=== PATIENT | male | born 2000 | race Caucasian/White ===

== ENCOUNTER 2021-05-07 06:35 | Emergency (ER) | payer MEDICAID, SELFPAY ==
[2021-05-07 07:03] VITALS: BP 131/68; PULSE 98; RESP 18; TEMP 36.6; O2SAT 97; BMI 36.7
[2021-05-07 07:05] VITALS: BP 134/66; PULSE 94; RESP 16; TEMP 36.9; O2SAT 98; BMI 36.7
--- NOTE | 2021-05-07 07:20 | ED.EAR ---
HPI - Ear Problem General Chief complaint: Ear Problems Stated complaint: ear pain for a few days, blockage Time Seen by Provider: 05/07/21 07:19 Source: patient and family ( mother) Mode of arrival: ambulatory Limitations: no limitations History of Present Illness HPI Narrative: 20-year-old male came in for evaluation of right ear pain. Pain started since yesterday, pain is constant described as dull aching pain severe 10/10, pain is more if he moves his head or touching his external ear, no other associated symptoms no fever or chills or hearing loss. patient declined recent swimming. Related Data Previous Rx's Medication Instructions Recorded amoxicillin 500 mg PO BID #14 cap 05/07/21 amoxicillin 500 mg PO BID #14 tab 05/07/21 ciprofloxacin HCl 5 drp OTIC (EAR) LEFT BID 7 Days 05/07/21 ea ciprofloxacin-hydrocortisone 3 drp OTIC (EAR) LEFT BID 7 Days 05/07/21 [Cipro HC] ml Allergies Allergy/AdvReac Type Severity Reaction Status Date / Time No Known Allergies Allergy Verified 05/07/21 07:05 [No Known Allergies*] Review of Systems Review of Systems: All other systems are reviewed and are negative Constitutional: Reports as per HPI and Reports no additional constitutional complaints Eyes: Reports as per HPI and Reports no additional eye complaints Reports system reviewed and no additional complaints, except as documented Cardiovascular: Reports as per HPI and Reports no additional cardiovascular complaints Respiratory: Reports as per HPI and Reports no additional respiratory complaints Gastrointestinal: Reports as per HPI and Reports no additional gastrointestinal complaints Genitourinary: Reports no additional female genitourinary complaints Musculoskeletal: Reports no additional musculoskeletal complaints Skin/Breast: Reports system reviewed and no additional complaints, except as docu Psychiatric: Reports no additional psychiatric complaints Endocrine: Reports no additional endocrine complaints Hematologic/Lymphatic: Reports no additional hematologic/lymphatic complaints Allergic/Immunologic: Reports no additional allergic/immunologic complaints Reports system reviewed and no additional complaints, except as documented and Reports Abnormal speech present [facility] Social History Social History Advance Directives: Yes Advance Directives Information Provided: Yes Advance Directives on File: No Physical Exam Vital Signs: Vital Signs: Last Vital Signs Temp 98.5 F 05/07/21 07:05 Pulse 94 05/07/21 07:05 Resp 16 05/07/21 07:05 BP 134/66 05/07/21 07:05 Pulse Ox 98 05/07/21 07:05 Body Mass Index 36.7 vital signs have been reviewed as appeared to be correct. Blood pressure normal. Heart rate normal. Respiration rate normal. Temperature normal. Oxygen saturation normal. Appearance: Alert. Oriented X3. No acute distress. Head: Normal external exam. Normocephalic. Atraumatic. No Gomez signs noted. No raccoon eyes noted Eyes: PERRLA. EOMI. Conjunctiva and sclera normal. Eyelids normal. ENT: tenderness with immobilize the external ear, small white discharge in external ear canal , TM is erythematous Neck: Normal inspection. Neck supple. FROM. No adenopathy. Thyroid Normal. No meningeal signs. No neck mass noted. CVS: Normal heart rate and rhythm. Heart sound normal. No murmurs noted. Pulses normal throughout. Respiratory: No respiratory distress. Painless inspiration. Breath sounds normal. No wheezes/rales/rhonchi noted. Chest nontender. No accessory muscle usage noted or decreased air movement noted. Abdomen: Soft and nontender. Bowel sounds normal in all 4 quadrants. No distention noted. No organomegaly noted. No visible injury noted. Back: No CVA tenderness. Full range of motion noted. Skin: Skin warm and dry. Normal skin color. Normal skin turgor. No rashes/lesions/lacerations noted. Extremities: No lower extremity edema. Extremities exhibit normal range of motion. Extremities nontender. Neuro: Oriented X 3. No motor deficit. No sensory deficit. Reflexes normal. Course Course Course Narrative: A 20-year-old male came in with right ear pain physical exam is consistent with mix of otitis media and otitis externa. Started patient on fluoroquinolones ear drums, and systemic amoxicillin. Discharge Plan Discharge Clinical Impression: Otitis externa, Otitis media Patient Disposition: Home, Self-Care Instructions: Otitis Externa (ED) Prescriptions: New Cipro HC 0.2-1 % drops,suspension 3 drp otic (ear) left BID 7 Days RF: 0 amoxicillin 500 mg capsule 500 mg PO BID Qty: 14 RF: 0 ciprofloxacin HCl 0.2 % dropperette 5 drp otic (ear) left BID 7 Days RF: 0 amoxicillin 500 mg tablet 500 mg PO BID Qty: 14 RF: 0 Referrals: Physician,Unknown [Primary Care Provider] - 2 days
== END 2021-05-07 07:44 | disposition home or self-care (01) ==
PROVIDERS: Emergency Provider Emergency Medicine
DX: H66.91 Otitis media, unspecified, right ear (principal); H60.91 Unspecified otitis externa, right ear
CPT/HCPCS: 99283; 99284

== ENCOUNTER 2025-03-07 15:11 | Outpatient (REF) | payer MEDICAID, SELFPAY ==
--- OUTSIDE RECORDS SUMMARY | 2025-03-07 15:43 | XMS_ITS | Encounter Summary ---
Author Organization [employer] Address [address] [facility] 7t [place] [address] Care Team Providers Care Match Maker Name Role Phone Lisa Mata Primary Care Provider Reason for Visit * Reason Comments Med Refill Encounter Details Date Type Department Care Team ([facility] st Contact Info) Description 03/12/2024 Refill [facility] CHC MED & PEDS [address] [place], [place] [phone] Lisa Mata ANP [address] [place] [address] Insomnia, unspecified type Social History Tobacco Use Types Packs/Day Years Used Date Smoking Tobacco: Never Smokeless Tobacco: Never Alcohol Use Standard Drinks/Week Comments Never 0 (1 standard drink = 0.6 oz pur e alcohol) Housing Stability Answer Date Recorded What is your housing situation today? I have елена huerta 09/05/[address] you li ve. Do you have problems with any of the following? None of the above 09/05/2023 Food Insecurity Answer Date Recorded Within the past 12 months, y ou worried that your food would run out before you got money to buy more: Never True 09/05/2023 Within the past 12 months,th e food you bought just didn't last and you didn't have enough money to get more: Never True 03/2023 Transportation Answer Date Recorded In the past 12 months, has l ack of transportation kept you from medical appts, meetings, work or from getting things needed for daily living? No 09/05/2023 Utilities Answer Date Recorded In the past 12 months, has t he electric, gas, oil or water [employer] threatened to shut off services in your home? No 09/05/2023 Depression Answer Date Recorded Patient Health Questionnaire-2 Score 0 05/27/2023 Sex and Gender Information Value Date Recorded Sex Assigned at Male 08/30/2022 10:18 AM EDT Legal Sex Male 10:18 AM EDT Gender Identity Male 08/30/2022 10:18 AM EDT Sexual Orientation Bisexual 08/30/2022 10 :18 AM EDT documented as of this encounter Plan of Treatment Upcoming Encounters Date Type Department Care Team (Late st Contact Info) Description 05/28/2025 1:15 PM EDT Office Visit [facility] MEDICINE [address] [place] [phone] Lisa Mata ANP [address] [place] [address] documented as of this encounter Visit Diagnoses Diagnosis Insomnia, unspecified type documented in this encounter Care Teams Match Maker Relationship Specialty Start Date End Date Lisa Mata ANP [address] [place] [phone] PCP - General Family Medicine 06/28/22 documented as of this encounter
--- OUTSIDE RECORDS SUMMARY | 2025-03-07 15:43 | XMS_ITS | Encounter Summary ---
Author Organization [facility] Address [address] [place] [address] Phone Care Team Providers Care Commercial Green Retrofit Architect Name Role Phone Unavailable Primary Care Provider Unavailabl e Encounter Details Date Type Department Care Team (Late st Contact Info) Description 06/16/2017 Conversion Encounter [facility] - [address] [address] Social History Tobacco Use Types Packs/Day Years Used Date Smoking Tobacco: Never Assessed Sex and Gender Information Value Date Recorded Sex Assigned at Not on file Legal Sex Male 4:22 PM EDT Gender Identity Not on file Sexual Orientation Not on file documented as of this encounter Plan of Treatment Not on file documented as of this encounter Visit Diagnoses Not on filedocumented in this encounter
--- OUTSIDE RECORDS SUMMARY | 2025-03-07 15:44 | XMS_ITS | Encounter Summary ---
Author Organization [employer] Address [address] [facility] 7t [place] [address] Care Team Providers Care Vehicle And Equipment Cleaner Name Role Phone Lisa Mata Primary Care Provider [phone] Reason for Visit * Reason Comments Med Refill Encounter Details Date Type Department Care Team ([facility] st Contact Info) Description 03/08/2024 Refill [facility] CHC MED & PEDS [address] [place], [place] [phone] Lisa Mata ANP [address] [place] [address] Insomnia, unspecified type Social History Tobacco Use [...] t he electric, gas, oil or water [employer] threatened to shut off services in your [...] Description 05/28/2025 1:15 PM EDT Office Visit [facility] MEDICINE [address] [place] [phone] Lisa Mata ANP [address] [place] [phone] documented as of this encounter Visit Diagnoses Diagnosis Insomnia, unspecified type documented in this encounter Care Teams Vehicle And Equipment Cleaner Relationship Specialty Start Date End Date Lisa Mata ANP [address] [place] [phone] PCP - General Family Medicine 06/28/22 documented as of this encounter
--- OUTSIDE RECORDS SUMMARY | 2025-03-07 15:44 | XMS_ITS | Encounter Summary ---
Author Organization [employer] Address [address] [place] [address] 7t [place] [address] Care Team Providers Care Medical Scribe Name Role Phone Lisa Mata Primary Care Provider [phone] Reason for Visit * Reason Comments Toe Pain Encounter Details Date Type Department Care Team ([facility] st Contact Info) Description 03/07/2025 2:30 PM EDT Office Visit [facility] MEDICINE [address] [place], [place] [phone] Lisa Mata ANP [address] [place] [address] Pain in both feet (Primary Dx); Elevated blood pressure reading without diagnosis of hypertension; Routine screening for STI (sexually transmitted infection); Onychomycosis; Screening for diabetes mellitus; Tinea pedis of both feet Social History Tobacco Use Types Packs/Day Years Used Date Smoking Tobacco: Never Smokeless Tobacco: Never Alcohol Use Standard Drinks/Week Comments Never 0 (1 standard drink = 0.6 oz pur e alcohol) Depression Answer Date Recorded Patient Health Questionnaire-9 Score 5 06/21/2024 Patient Health Questionnaire-9 Score 5 06/21/2024 Last PHQ-9: Questionnaire Data Not on file 0 06/21/2024 Housing Stability Answer Date Recorded What is your housing situation today? I have елена huerta 06/21/[address] you li ve. Do you have problems with any of the following? None of the above 06/21/2024 Food Insecurity Answer Date Recorded Within the past 12 months, y ou worried that your food would run out before you got money to buy more: Never True 06/21/2024 Within the past 12 months,th e food you bought just didn't last and you didn't have enough money to get more: Never True Transportation Answer Date Recorded In the past 12 months, has l ack of transportation kept you from medical appts, meetings, work or from getting things needed for daily living? I am not sure 06/21/2024 Utilities Answer Date Recorded In the past 12 months, has t he electric, gas, oil or water company threatened to shut off services in your home? I am not sure 06/21/2024 Depression Answer Date Recorded Patient Health Questionnaire-2 Score 1 06/21/2024 Internet Access Answer Date Recorded Internet Access Q1 Yes 07/02/2024 Internet Access Q2 Not on file 07/02/2024 Sex and Gender Information Value Date Recorded Sex Assigned at Male 08/30/2022 10:18 AM EDT Legal Sex Male 10:18 AM EDT Gender Identity Male 08/30/2022 10:18 AM EDT Sexual Orientation Bisexual 08/30/2022 10 :18 AM EDT documented as of this encounter Last Filed Vital Signs Vital Sign Reading Time Taken Comments Blood Pressure 150/72 03/07/2025 2:55 PM EDT Pulse 90 03/07/2025 2:31 PM EDT Temperature - - Respiratory Rate 20 03/07/2025 2:31 PM EDT Oxygen Saturation - - Inhaled Oxygen Concentration - - Weight 147 kg (325 lb) 03/07/2025 2:31 PM EDT Height 188 cm (6' 2 ) 03/07/2025 2:31 PM EDT Body Mass Index 41.73 03/07/2025 2:31 PM EDT documented in this encounter Plan of Treatment Upcoming Encounters Date Type Department Care Team (Late st Contact Info) Description 05/28/2025 1:15 PM EDT Office Visit [facility] MEDICINE [address] [place] [address] Lisa Mata ANP [address] [place], [place] [phone] Scheduled Orders Name Type Priority Associated Diagnoses Orde r Schedule Comprehensive Metabolic Panel Lab Routine Onychomycosis Expected: 03/07/2025 (Approximate), Expires: 03/07/2026 HIV-1/2 Antigen and Antibodies, Fourth Generation, with Reflexes Lab Routine Routine screening for STI (sexually transmitted infection) Expected: 03/07/2025 (Approximate), Expires: 03/07/2026 RPR (Monitor) with Reflex to??Titer Lab Routine Routine screening for STI (sexually transmitted infection) Expected: 03/07/2025 (Approximate), Expires: 03/07/2026 Hepatitis C Antibody with Reflex to HCV, RNA, Quantitative, Real-Time PCR Lab Routine Routine screening for STI (sexually transmitted infection) Expected: 03/07/2025 (Approximate), Expires: 03/07/2026 TSH W/Reflex to FT4 Lab Routine Elevated blood pressure reading without diagnosis of hypertension Expected: 03/07/2025 (Approximate), Expires: 03/07/2026 Hemoglobin A1c Lab Routine Screening for diabetes mellitus Expected: 03/07/2025 (Approximate), Expires: 03/07/2026 documented as of this encounter Visit Diagnoses Diagnosis Pain in both feet- Primary Elevated blood pressure reading without diagnosis of hypertension Routine screening for STI (sexually transmitted infection) Screening examination for venereal disease Onychomycosis Dermatophytosis of nail Screening for diabetes mellitus Tinea pedis of both feet documented in this encounter Additional Health Concerns Assessment Noted Time PHQ-9 Depression Total Score: 5 06/21/20 24 2:58 PM EDT documented as of this encounter Care Teams Medical Scribe Relationship Specialty Start Date End Date Lisa Mata ANP [address] [place] [phone] PCP - General Family Medicine 06/28/22 documented as of this encounter
--- OUTSIDE RECORDS SUMMARY | 2025-03-07 15:44 | XMS_ITS | Encounter Summary ---
Author Organization [employer] Address [address] [facility] 7t [place] [address] Care Team Providers Care Silvering Applicator Name Role Phone Lisa Mata Primary Care Provider [phone] Reason for Visit * Reason Onset Date Comments Nurse Triage 03/07/2025 Encounter Details Date Type Department Care Team ([facility] st Contact Info) Description 03/07/2025 Telephone [facility] MEDICINE [address], [place] [phone] Lisa Mata ANP [address] [place], [place] [phone] Nurse Triage Social History Tobacco Use Types Packs/Day Years [...] AM EDT documented as of this encounter Miscellaneous Notes * Telephone Encounter - Janell Dunham RN - 03/07/2025 11:25 AM EDT Called pt. He states that he has been having pain in his toes when he stands for long periods of time. No redness, coldness, no hot to touch, no blue toes , no swelling or numbness but, this has beenoccurring for a few months now and pt. Wants to address issue. Appt. Made for today at 230pm with PCP. Protocol Used: Toe Pain (Adult) Protocol-Based Disposition: See in Office or Video Visit within 3 Days Video visit offer not recorded Positive Triage Questions: * Patient wants to be seen * Toe pain is a chronic symptom (recurrent or ongoing AND present > 4 weeks) * All higher-acuity triage questions were negative * Telephone Encounter - Sola Alfaro - 03/07/2025 10:56 AM EDT Symptom: Toe Pain - Not From Injury Outcome: Schedule an urgent appointment (within 1 hour) or talk to a nurse or provider soon Reason: Trouble walking The caller accepted this outcome. documented in this encounter Plan of Treatment Upcoming Encounters Date Type Department Care Team (Late st Contact Info) Description 05/28/2025 1:15 PM EDT Office Visit [facility] MEDICINE [address] [place] [address] Lisa Mata ANP [address] [place] [address] documented as of this encounter Visit Diagnoses Not on filedocumented in this encounter Additional Health Concerns Assessment Noted Time PHQ-9 Depression Total Score: 5 06/21/20 24 2:58 PM EDT documented as of this encounter Care Teams Silvering Applicator Relationship Specialty Start Date End Date Lisa Mata ANP [address] [place] [address] PCP - General Family Medicine 06/28/22 documented as of this encounter
--- OUTSIDE RECORDS SUMMARY | 2025-03-07 15:44 | XMS_ITS | Encounter Summary ---
Author Organization [employer] Address [address] [facility] 7t [place] [address] Care Team Providers Care Associate Professor Of Communication Name Role Phone Lisa Mata Primary Care Provider [phone] Reason for Visit * Reason Comments Med Refill Encounter Details Date Type Department Care Team ([facility] st Contact Info) Description 03/13/2024 Refill [facility] CHC MED & PEDS [address] [place], [place] [phone] Lisa Mata ANP [address] [place] [address] Insomnia, unspecified type Social History Tobacco Use [...] t he electric, gas, oil or water [employer] threatened to shut off services in your [...] Description 05/28/2025 1:15 PM EDT Office Visit [facility] MEDICINE [address] [place] [phone] Lisa Mata ANP [address] [place] [phone] documented as of this encounter Visit Diagnoses Diagnosis Insomnia, unspecified type documented in this encounter Care Teams Associate Professor Of Communication Relationship Specialty Start Date End Date Lisa Mata ANP [address] [place] [phone] PCP - General Family Medicine 06/28/22 documented as of this encounter
--- OUTSIDE RECORDS SUMMARY | 2025-03-07 15:44 | XMS_ITS | Clinical Summary ---
Author Organization [facility] Address [address] [place] [phone] Phone Care Team Providers Care Care Professional Name Role Phone Unavailable Primary Care Provider Unavailabl e Immunizations Immunization Administration Dates Next Due DTaP 5 06/15/2005, 3,02/23/2002,01/20/2001, 1 Hep B, ped/adol 03/24/2001,01/20/2001,2000 Hib (PRP-T) 02/23/2002,03/24/2001,01/20/2001 ,2000 IPV 06/15/2005,12/23/2004,01/20/2001 ,2000 MMR 06/15/2005,10/10/2001 Pneumococcal Conjugate 12/05/2001,03/24/2001, Tdap 07/25/2007 Varicella 06/21/2007,04/12/2002 Social History Tobacco Use Types Packs/Day Years Used Date Smoking Tobacco: Never Assessed Sex and Gender Information Value Date Recorded Sex Assigned at Not on file Legal Sex Male 4:22 PM EDT Gender Identity Not on file Sexual Orientation Not on file Plan of Treatment Health Maintenance Due Date Last Done Comments DTaP,Tdap,and Td Vaccines (6 - Tdap) 2011 07/25/2007, 06/15/2005, 02/12/2003, Additional history exists HPV Vaccines (1 - Male 3-dose series) 2015 Influenza Vaccines (#1) 2024 COVID-19 Vaccine (1 - season) 2024 Hepatitis B Vaccines Completed 03/24/2001, 01/20/2001, 2000 Pneumococcal Vaccine Completed 12/05/2001, 03/24/2001, 01/20/2001 HIB Vaccines Completed 02/23/2002, 03/01, 01/20/2001, Additional history exists IPV Vaccines Completed 06/15/2005, 12/02, 01/20/2001, Additional history exists MMR Vaccines Completed 06/15/2005, 10/10/2001 Varicella Vaccines Completed 06/21/2007, 04/12/2002 Hepatitis A Vaccines Aged Out No long er eligible based on patient's age to complete this topic Men B Vaccine Aged Out No longer elig ible based on patient's age to complete this topic Meningococcal Vaccine Aged Out No katrina danielito eligible based on patient's age to complete this topic
--- OUTSIDE RECORDS SUMMARY | 2025-03-07 15:44 | XMS_ITS | Clinical Summary ---
Author Organization [employer] Address [address] [facility] 7[address] [place] [address] Care Team Providers Care Tour Counselor Name Role Phone Lisa Mata Primary Care Provider [phone] Allergies No known active allergies Medications melatonin 5 MG tabletIndications :Insomnia, unspecified type Take 1 tablet (5 mg) by mouth at bedtime. 90 tablet 1 4 Active Blood Pressure kitIndications:El evated blood pressure reading without diagnosis of hypertension 1 each 2 times daily. 1 kit 4 06/21/20 25 Active traZODone (Desyrel) 50 MG tabletIndications :Insomnia, unspecified type TAKE 1 TABLET BY MOUTH EVERY DAY AT BEDTIME NEEDED FOR SLEEP 30 tablet 1 4 Active clotrimazole (Lotrimin) 1 % creamIndications: Tinea pedis of both feet Apply twice daily for at least 1 mo 85 g 1 5 Active Active Problems Problem Noted Date Diagnosed Date Overweight 08/01/2012 Attention deficit hyperactivity disorder 012 Autistic disorder 05/26/2012 Encounters Date Type Department Care Team Description 03/07/2025 2:30 PM EDT Office Visit [facility] [address] [place], [place] [phone] Lisa Mata ANP Pain in both feet (Primary Dx); Elevated blood pressure reading without diagnosis of hypertension; Routine screening for STI (sexually transmitted infection); Onychomycosis; Screening for diabetes mellitus; Tinea pedis of both feet 03/07/2025 Travel 03/07/2025 Telephone [facility] [address] [place] [address] Lisa Mata, ANP Nurse Triage 01/11/2025 Population Health Risk Score [facility] () [address] [address] Provider, Population Health Generic from Last 3 Months Immunizations Name Administration Dates Next Due DTaP, 5 pertussis antigens 06/15/2005,,02/23/2002,01/20,2000 HPV, Quadrivalent 11/27/2014,09/25/2013,05/26/20 12 Hep A, ped/adol, 2 dose 05/25/2011,03/17/2010 Hep B, Adolescent or Pediatric 03/24/2001,2000,2000 Hib (PRP-T) 02/23/2002, 1,01/20/2001,11/17 IPV 06/15/2005, 5,02/23/2002,01/20,2000 Influenza injectable quadriv alent IIV4 with preservative 11/14/2019 Influenza injectable quadriv alent preservative free 08/21/2018,02/19/2016,11/27/2014 Influenza, IIV3, injectable 08/06/2008 Influenza, live, intranasal 09/25/2013 MMR 08/21/2018, 5,10/10/2001,03/24 Meningococcal MCV4P ACYW-135 03/22/2017,05/26/20 12 Pfizer Covid-19 Vaccine 12+ Bivalent 05/27/2023 Pneumococcal Conjugate PCV 7 12/05/2001, 09/30/2001,03/24/2001,01/20 Tdap 03/07/2025,05/26/2012,07/25/2007 Varicella 06/21/2007,04/12/2002 Family History Medical History Relation Name Comments Diabetes Maternal Grandmother Asthma Mother Schizophrenia Mother's Brother Relation Name Status Comments Maternal Grandmother Mother Mother's Brother Social History Tobacco Use Types Packs/Day Years Used Date Smoking Tobacco: Never Smokeless Tobacco: Never Tobacco Cessation:Counseling Given: Not Answered Alcohol Use Standard Drinks/Week Comments Never 0 [...] Orientation Bisexual 08/30/2022 10 :18 AM EDT Last Filed Vital Signs Vital Sign Reading Time Taken Comments Blood Pressure 150/72 03/07/2025 2:55 PM EDT Pulse 90 03/07/2025 2:31 PM EDT Temperature 36.2 ??C (97.1 ??F) 06/21/2024 2:33 PM ED T Respiratory Rate 20 03/07/2025 2:31 PM EDT Oxygen Saturation 95% 06/21/2024 2:33 PM EDT Inhaled Oxygen Concentration - - Weight 147 kg (325 lb) 03/07/2025 2:31 PM EDT Height 188 cm (6' 2 ) 03/07/2025 2:31 PM EDT Body Mass Index 41.73 03/07/2025 2:31 PM EDT Plan of Treatment Upcoming Encounters Date Type Department Care Team (Late st Contact Info) Description 05/28/2025 1:15 PM EDT Office Visit [facility] [address] [place] [address] Lisa Mata ANP [address] [place] [address] Health Maintenance Due Date Last Done Comments HIV Screening 2000 Family Planning (PISQ) 2015 Hepatitis C Screening 2018 COVID-19 Vaccine ( season) 2024 05/27/2023, 03/19/2021, 02/26/2021 Influenza Vaccine (#1) 2024 , 08/21/2018, 02/19/2016, Additional history exists Depression Screening 06/21/2025 06/21/2024, 06/21/20 24 SDOH Screening 06/21/2025 06/21/2024 Alcohol/Substance Use Screening 03/07/2026 03/07/2025 Tobacco Screening 03/07/2026 03/07/2025 DTaP/Tdap/Td Vaccines (8 - Td or Tdap) 03/07/2035 03/07/2025, 05/26/2012, 07/25/2007, Additional history exists Zoster Vaccines (1 of 2) 2050 RSV Patients and Patients Aged 60 years or older (1 - 1-dose 75+ series) 2075 Hepatitis B Vaccines Completed 03/24/2001, 01/20/2001, 2000 Pneumococcal Vaccine: Pediatrics (0 to 5 Years) and At-Risk Patients (6 to 49) Years) Aged Out 12/05/2001, 09/30/2001, 03/24/2001, Additional history exists No longer eligible based on patient's age to complete this topic HIB Vaccines Completed 02/23/2002, 03/01, 01/20/2001, Additional history exists IPV Vaccines Completed 06/15/2005, 12/02, 02/23/2002, Additional history exists Hepatitis A Vaccines Completed 05/25/2011, 03/17/20 10 HPV Vaccines Completed 11/27/2014, 09/01, 05/26/2012 Meningococcal Vaccine Completed 03/22/2017, 012 RSV under 20 months Aged Out No longe r eligible based on patient's age to complete this topic Rotavirus Vaccines Aged Out No longer eligible based on patient's age to complete this topic Insurance Care Teams Tour Counselor Relationship Specialty Start Date End Date Lisa Mata ANP [address] [place] [address] PCP - General Family Medicine 06/28/22
--- OUTSIDE RECORDS SUMMARY | 2025-03-07 15:44 | XMS_ITS | Encounter Summary ---
Author Organization [employer] Address [address] [place] [address] Care Team Providers Care Model Maker Scale Name Role Phone Lisa Mata SONG Primary Care Provider [phone] Encounter Details Date Type Department Care Team (Latest Contact Info) Description 03/07/2025 Travel Social History Tobacco Use Types Packs/Day Years [...] Description 05/28/2025 1:15 PM EDT Office Visit [facility] [address] [place] [phone] Lisa Mata ANP [address] [place] [address] documented as of this encounter Visit Diagnoses Not on filedocumented in this encounter Additional Health Concerns Assessment Noted Time PHQ-9 Depression Total Score: 5 06/21/20 24 2:58 PM EDT documented as of this encounter Care Teams Model Maker Scale Relationship Specialty Start Date End Date Lisa Mata ANP [address] [place] [address] PCP - General Family Medicine 06/28/22 documented as of this encounter
[2025-03-07 16:17] LABS: Estimated Average Glucose 117 mg/dL; Hemoglobin A1C 134.7586 umol/L; Hemoglobin A1c % 5.7 % (<6.0); Total Hemoglobin (HGBA1C) 3500.9782 umol/L
[2025-03-07 16:34] LABS: Alanine Aminotransferase 56 U/L (0-40); Albumin Level 4.2 g/dL (3.5-5.0); Anion Gap 11 (12-20); Aspartate Amino Transferase 38 U/L (5-37); Bilirubin Total 0.9 mg/dL (0.0-1.0); Blood Urea Nitrogen 12 mg/dL (9-16); Calcium 9.8 mg/dL (8.4-10.2); Carbon Dioxide 30 mmol/L (22-29); Chloride 104 mmol/L (96-108); Estimated Glomerular Filt Rate > 60; Glucose Random 94 mg/dL (60-115); Potassium 4.3 mmol/L (3.3-5.1); Sodium 141 mmol/L (135-145); Total Protein 7.4 g/dL (6.5-8.0)
[2025-03-07 16:55] LABS: TSH reflex Free T4 2.83 uIU/mL (0.32-4.0)
[2025-03-07 17:11] LABS: Alkaline Phosphatase 80 U/L (39-117)
[2025-03-08 07:59] LABS: HIV AB/AG Nonreactive (Nonreactive); HIV Num 1 0.07 S/CO (0.00-0.99); ~HepC Num1 0.09 S/CO (0.00-0.79); ~Hepatitis C Antibody Nonreactive (Nonreactive)
[2025-03-10 16:02] LABS: RPR Rapid Plasma Reagin NON-REACTIVE (NON-REACTIVE)
== END 2025-03-07 15:12 | disposition home or self-care (01) ==
LOC: HO.HHCL 15:11
PROVIDERS: Visit Provider Nurse Practitioner Primary Care
DX: Z11.3 Encounter for screening for infections with a predominantly sexual mode of transmission (principal); Z13.1 Encounter for screening for diabetes mellitus; Z11.4 Encounter for screening for human immunodeficiency virus [HIV]; B35.1 Tinea unguium; R03.0 Elevated blood-pressure reading, without diagnosis of hypertension
CPT/HCPCS: 36415; 80053; 83036; 84443; 86592; 86803; 87389

== ENCOUNTER → 2025-07-04 20:30 | Outpatient (REF) | payer MEDICAID, SELFPAY ==
--- OUTSIDE RECORDS SUMMARY | 2025-07-04 21:10 | XMS_ITS | Encounter Summary ---
Author Organization [employer] Address [address] [facility] 7t [place] [address] Care Team Providers Care Director Advertising Name Role Phone Lisa Mata Primary Care Provider [phone] Reason for Visit * Reason Comments Med Refill Encounter Details Date Type Department Care Team ([facility] Contact Info) Description 03/12/2024 Refill [facility] [address] [place], [place] [phone] Lisa Mata ANP [address] [facility] [place] [address] Insomnia, unspecified type Social History Tobacco Use [...] Care Team (Late st Contact Info) Description 08/29/2025 1:15 PM EDT Office Visit [facility] [address] [place] [address] Lisa Mata ANP [address] [place] [address] 11/06/2025 3:00 PM EST Office Visit [facility] [address] [place] [address] Isrrael, Piper, OD [address] [place] [address] documented as of this encounter Visit Diagnoses Diagnosis Insomnia, unspecified type documented in this encounter Care Teams Director Advertising Relationship Specialty Start Date End Date Lisa Mata ANP [address] [place] [address] PCP - General Family Medicine 06/28/22 documented as of this encounter
--- OUTSIDE RECORDS SUMMARY | 2025-07-04 21:10 | XMS_ITS | Encounter Summary ---
Author Organization [facility] Address [address] [place] [address] Phone Care Team Providers Care Director Translational Name Role Phone Unavailable Primary Care Provider Unavailabl e Encounter Details Date Type Department Care Team (Late st Contact Info) Description 06/16/2017 Conversion Encounter [facility] - [address] [address] Social History Tobacco Use Types Packs/Day Years [...]
--- OUTSIDE RECORDS SUMMARY | 2025-07-04 21:10 | XMS_ITS | Encounter Summary ---
Author Organization [employer] Address [address] [facility] 7[address] [place] [address] Care Team Providers Care Hydro Electric Station Operator Name Role Phone Lisa Mata Primary Care Provider [phone] Reason for Visit * Reason Comments Med Refill Encounter Details Date Type Department Care Team ([facility] Contact Info) Description 03/13/2024 Refill [facility] [address] [place], [place] [phone] Lisa Mata ANP [address] [place] [address] Insomnia, unspecified type Social History Tobacco Use [...] Description 08/29/2025 1:15 PM EDT Office Visit [facility] [address] [place] [address] Lisa Mata ANP [address] [place] [address] 11/06/2025 3:00 PM EST Office Visit [facility] [address] [place] [address] Isrrael, Piper, OD [address] [place] [address] documented as of this encounter Visit Diagnoses Diagnosis Insomnia, unspecified type documented in this encounter Care Teams Hydro Electric Station Operator Relationship Specialty Start Date End Date Lisa Mata ANP [address] [place] [address] PCP - General Family Medicine 06/28/22 documented as of this encounter
--- OUTSIDE RECORDS SUMMARY | 2025-07-04 21:10 | XMS_ITS | Clinical Summary ---
Author Organization [employer] Address [address] [place] [address], [place] [address] Care Team Providers Care Building Inspector Name Role Phone Lisa Mata Primary Care Provider [phone] Allergies No known active allergies Medications * This document contains information received from the source organization and may not represent a complete record from that organization. clotrimazole (Lotrimin) 1 % creamIndications: Tinea pedis of both feet Apply twice daily for at least 1 mo 85 g 1 5 Active Blood Pressure Monitoring (Omron 3 Series BP Monitor) deviceIndications :Elevated blood pressure reading without diagnosis of hypertension USE TWICE DAILY DIRECTED 1 each 5 Active Active Problems Problem Noted Date Diagnosed Date Depression, unspecified 06/11/2025 Overweight 08/01/2012 Attention deficit hyperactivity disorder 012 Autistic disorder 05/26/2012 Encounters * This document contains information received from the source organization and may not represent a complete record from that organization. Date Type Department Care Team Description 05/28/2025 1:15 PM EDT Office Visit [facility] [address] [place] [phone] Lisa Mata ANP Elevated hemoglobin A1c (Primary Dx); Elevated LFTs; Daytime somnolence; Stress 05/28/2025 Travel 05/27/2025 Travel 05/27/2025 Telephone [facility] [address] [place] [address] Lisa Mata ANP chart prep 04/03/2025 Refill [facility] [address] [place] [address] Lisa Mata ANP Elevated blood pressure reading without diagnosis of hypertension from Last 3 Months Immunizations Immunization Administration Dates Next Due DTaP, 5 pertussis [...] Answer Date Recorded Patient Health Questionnaire-9 Score 7 06/14/2025 Patient Health Questionnaire-9 Score 7 06/14/2025 Last PHQ-9: Questionnaire Data Not on file 0 06/14/2025 Housing Stability Answer Date Recorded What is [...] shut off services in your home? No 05/28/2025 Depression Answer Date Recorded Patient Health Questionnaire-2 Score 1 06/14/2025 Internet Access Answer Date Recorded Internet Access [...] Sign Reading Time Taken Comments Blood Pressure 159/83 05/28/2025 1:15 PM EDT Pulse 90 05/28/2025 1:15 PM EDT Temperature 36.2 C (97.1 F) 06/21/2024 2:33 PM EDT Respiratory Rate 16 05/28/2025 1:15 PM EDT Oxygen Saturation 95% 06/21/2024 2:33 PM EDT Inhaled Oxygen Concentration - - Weight 152 kg (335 lb) 05/28/2025 1:15 PM EDT Height 188 cm (6' 2 ) 05/28/2025 1:15 PM EDT Body Mass Index 43.01 05/28/2025 1:15 PM EDT Plan of Treatment Upcoming Encounters Date Type Department Care Team (Late st Contact Info) Description 08/29/2025 1:15 PM EDT Office Visit [facility] [address] [place] [address] Lisa Mata ANP [address] [place] [address] 11/06/2025 3:00 PM EST Office Visit [facility] [address] [place] [address] Piper Arcos, OD [address] [place] [address] Health Maintenance Due Date Last Done Comments Family Planning (PISQ) 2015 SDOH Screening 06/21/2025 06/21/2024 COVID-19 Vaccine ( season) 2025 05/27/2023, 03/19/2021, 02/26/2021 Influenza Vaccine (#1) 2025 , 08/21/2018, 02/19/2016, Additional history exists Alcohol/Substance Use Screening 03/07/2026 03/07/2025 Diabetes: Hemoglobin A1C 03/07/2026 03/07/2025 Disability Screening 05/27/2026 05/27/2025 Tobacco Screening 05/28/2026 05/28/2025 Depression Screening 06/14/2026 06/14/2025, 06/14/20 DTaP/Tdap/Td Vaccines (8 - Td or Tdap) 03/07/2035 03/07/2025, 05/26/2012, 07/25/2007, Additional history exists Zoster Vaccines (1 of 2) 2050 RSV Patients and Patients Aged 60 years or older (1 - 1-dose 75+ series) 2075 Hepatitis B Vaccines Completed 03/24/2001, 01/20/2001, 2000 Pneumococcal Vaccine: Pediatrics (0 to 5 Years) and At-Risk Patients (6 to 49) Years Aged Out 12/05/2001, 09/30/2001, 03/24/2001, Additional history exists No longer eligible based on patient's age to complete this topic HIB Vaccines Completed 02/23/2002, 03/01, 01/20/2001, Additional history exists IPV Vaccines Completed 06/15/2005, 12/02, 02/23/2002, Additional history exists Hepatitis A Vaccines Completed 05/25/2011, 03/17/20 10 HPV Vaccines Completed 11/27/2014, 09/01, 05/26/2012 Meningococcal Vaccine Completed 03/22/2017, 012 HIV Screening Completed 03/07/2025 Hepatitis C Screening Completed 03/07/2025 Meningococcal B Vaccine Aged Out No l onger eligible based on patient's age to complete this topic RSV under 20 months Aged Out No longe r eligible based on patient's age to complete this topic Rotavirus Vaccines Aged Out No longer eligible based on patient's age to complete this topic Procedures Procedure Name Priority Date/Time Associated Diagnosis Comments HEPATITIS C AB W/REFL TO HCV RNA, QN, PCR Routine 03/07/2025 3:13 PM EDT Routine screening for STI (sexually transmitted infection) HIV 1/2 ANTIGEN/ANTIBODY, FOURTH GENERATION W/RFL Routine 03/07/2025 3:13 PM EDT Routine screening for STI (sexually transmitted infection) HEMOGLOBIN A1C Routine 03/07/2025 3:13 PM EDT Screening for diabetes mellitus from Last 3 Months or Most Recently Relevant to Health Maintenance Results * Hepatitis C Antibody with Reflex to HCV, RNA, Quantitative, Real-Time PCR (03/07/2025 3:13 PM EDT) Hepatitis C Antibody Nonreactive Nonreactive [facility] Comment:Antibodies to HCV no t detected; does not exclude early acuteHCV infection. Blood Venous blood specimen / Unknown 03/07/2025 3:13 PM EDT 03/07/2025 3:54 PM EDT Lisa ZULETA LAB BLOOD ORDERABLES Final Resul t [facility] [address] [place] [phone] * HIV-1/2 Antigen and Antibodies, Fourth Generation, with Reflexes (03/07/2025 3:13 PM EDT) HIV AB/AG Nonreactive Nonreactive [facility] Comment:HIV-1 p24 Ag and/or HIV-1/HIV-2 Ab not detected.A test result that is nonreactive does not exclude thepossibility of exposure to or infection with HIV-1 and/orHIV-2. Nonreactive results in this assay for individualswith prior exposure to HIV-1 and/or HIV-2 may be due toantigen and antibody levels that are below the limit ofdetection of this assay.The Swipe.to HIV Ag/Ab Combo assay result andsupplemental assay results should be interpreted inconjunction with the patient's clinical presentation,history and other laboratory results. If the results areinconsistent with clinical evidence, additional testing issuggested to confirm the result. Blood Venous blood specimen / Unknown 03/07/2025 3:13 PM EDT 03/07/2025 3:54 PM EDT [facility] LAB BLOOD ORDERABLES Final Resul t [facility] [address] [place] [phone] * Hemoglobin A1c (03/07/2025 3:13 PM EDT) Hemoglobin A1c 5.7 <6.0 % [facility] Comment:Hemoglobin A1C Refer ence Range Adults: 4.8 - 6.0 % Non diabetic: < 6.0 % Goal: < 7.0 %Additional Action Suggested: > 8.0 %Note: Hemoglobin A1c results are invalid for patients with abnormal amounts of HbF. Blood transfusions may impact the HbA1c concentration in the patient sample. Estimated Average Glucose 117 mg/dL [facility] Comment:eAG = Estimated ave rage glucose which is %A1C expressed asaverage glucose, using the formula of the [id number] Glucose study (ADAG), Diabetes Care, Vol.31,#8,May. 2007 Blood Venous blood specimen / Unknown 03/07/2025 3:13 PM EDT 03/07/2025 3:54 PM EDT us Lisa ZULETA LAB BLOOD ORDERABLES Final Resul t [facility] [address] [place] [address] [phone] from Last 3 Months or Most Recently Relevant to Health Maintenance Insurance Care Teams Building Inspector Relationship Specialty Start Date End Date Lisa Mata ANP [address] [place], [place] PCP - General Family Medicine 06/28/22
--- OUTSIDE RECORDS SUMMARY | 2025-07-04 21:10 | XMS_ITS | Clinical Summary ---
Author Organization [facility] Address [address] [place] [phone] Phone Care Team Providers Care Police Pilot Name Role Phone Unavailable Primary Care Provider [...] Male 3-dose series) 2015 Influenza Vaccines (#1) 2025 COVID-19 Vaccine (1 - season) 2025 Hepatitis B Vaccines Completed 03/24/2001, 01/20/2001, 2000 [...]
--- OUTSIDE RECORDS SUMMARY | 2025-07-04 21:10 | XMS_ITS | Clinical Summary ---
Author Organization [facility] Address [address] [place] [address] Phone Care Team Providers Care Services Account Manager Name Role Phone AdolfoLisa Praveen BATISTA Primary Care Provider [phone] Medications terbinafine (LamISIL) 250 mg tablet Take 1 tablet (250 mg total) by mouth 1 (one) time each day. 30 tablet 2 06/13/2025 Active Encounters Date Type Department Care Team Description 06/13/2025 1:15 PM EDT Office Visit [facility] [address] [phone] Carroll Puga DPM Dermatophytosis of nail (Primary Dx); Tinea pedis from Last 3 Months Social History Tobacco Use Types Packs/Day Years Used Date Smoking Tobacco: Never Assessed Sex and Gender Information Value Date Recorded Sex Assigned at Not on file Legal Sex Male 9:03 AM EDT Gender Identity Not on file Sexual Orientation Not on file Last Filed Vital Signs Vital Sign Reading Time Taken Comments Blood Pressure - - Pulse - - Temperature - - Respiratory Rate - - Oxygen Saturation - - Inhaled Oxygen Concentration - - Weight 147 kg (325 lb) 06/13/2025 1:08 PM EDT Height - - Body Mass Index - - Plan of Treatment Upcoming Encounters Date Type Department Care Team ([facility] Contact Info) Description 07/30/2025 3:00 PM EDT Office Visit [facility] [address] [phone] Carroll Puga DPM [address] [phone] Health Maintenance Due Date Last Done Comments Depression Screening 10/31/2024 Social Influencers of Health Screening 03/14/2025 COVID-19 Vaccine ( season) 2025 05/27/2023, 03/19/2021, 02/26/2021 Influenza Vaccine (#1) 2025 , 08/21/2018, 02/19/2016, Additional history exists DTaP,Tdap,and Td Vaccines (8 - Td or Tdap) 03/07/2035 03/07/2025, 05/26/2012, 07/25/2007, Additional history exists Hepatitis B Vaccines Completed 03/24/2001, 01/20/2001, 2000 Pneumococcal Vaccine: Pediatrics (0 to 5 Years) and At-Risk Patients (6 to 49 Years) Completed 12/05/2001, 09/30/2001, 03/24/2001, Additional history exists HIB Vaccines Completed 02/23/2002, 03/01, 01/20/2001, Additional history exists IPV Vaccines Completed 06/15/2005, 12/02, 02/23/2002, Additional history exists Varicella Vaccines Completed 06/21/2007, 04/12/2002 Hepatitis A Vaccines Completed 05/25/2011, 03/17/20 10 HPV Vaccines Completed 11/27/2014, 09/01, 05/26/2012 Meningococcal ACWY Vaccine Completed 03/22/2017, MMR Vaccines Completed 08/21/2018, 05/31, 10/10/2001, Additional history exists HIV Screening Completed 03/07/2025 Hepatitis C Screening Completed 03/07/2025 Meningococcal B Vaccine Aged Out No l onger eligible based on patient's age to complete this topic RSV Immunization Patients Under 20 months Aged Out No longer eligible based on patient's age to complete this topic Insurance [place] - [place] Care Teams Services Account Manager Relationship Specialty Start Date End Date Lisa Mata NP [address] [place] [phone] PCP - General 03/14/25
--- OUTSIDE RECORDS SUMMARY | 2025-07-04 21:10 | XMS_ITS | Encounter Summary ---
Author Organization [employer] Address [address] [facility] 7t [place] [address] Care Team Providers Care Quality Improvement Coordinator Name Role Phone Lisa Mata Primary Care Provider [phone] Reason for Visit * Reason Comments Med Refill Encounter Details Date Type Department Care Team ([facility] st Contact Info) Description 03/08/2024 Refill [facility] & PEDS [address] [place], [place] [phone] Lisa Mata ANP [address] [place] [address] Insomnia, unspecified type Social History Tobacco Use [...] Description 08/29/2025 1:15 PM EDT Office Visit [facility] [address] [place] [address] Lisa Mata ANP [address] [place] [address] 11/06/2025 3:00 PM EST Office Visit [facility] [address] [place] [address] Isrrael, Piper, OD [address] [place] [address] documented as of this encounter Visit Diagnoses Diagnosis Insomnia, unspecified type documented in this encounter Care Teams Quality Improvement Coordinator Relationship Specialty Start Date End Date Lisa Mata ANP [address] [place] [address] PCP - General Family Medicine 06/28/22 documented as of this encounter
== END ==
LOC: HO.SL 20:30
PROVIDERS: PCP Nurse Practitioner Primary Care; Visit Provider Nurse Practitioner Primary Care
DX: G47.33 Obstructive sleep apnea (adult) (pediatric) (principal); R06.83 Snoring; R40.0 Somnolence
CPT/HCPCS: 95811

== ENCOUNTER → 2025-07-04 20:30 | Outpatient (BNV) | payer MEDICAID, SELFPAY | PROVIDERS: PCP Nurse Practitioner Primary Care; Visit Provider Internal Medicine | DX: G47.33 Obstructive sleep apnea (adult) (pediatric) (principal); R06.83 Snoring | CPT/HCPCS: 95811 ==

== ENCOUNTER 2025-07-07 13:32 | Emergency (ER) | payer MEDICAID, SELFPAY ==
--- NOTE | ~2025-07-07 | XR_ITS ---
CLINICAL HISTORY: back pain Three-view lumbar spine Comparison: None provided Findings: Normal vertebral body alignment. No acute fractures or dislocation. No significant degenerative change. IMPRESSION: No acute findings. This document has been electronically signed by: Tamia Velazquez MD on 07/07/2025 15:08:39
--- NOTE | ~2025-07-07 | XR_ITS ---
CLINICAL HISTORY: back pain 3 views thoracic spine Comparison: None provided Findings: Normal vertebral body alignment. No acute fractures or dislocation. No significant degenerative change. IMPRESSION: No acute findings. This document has been electronically signed by: Tamia Velazquez MD on 07/07/2025 15:07:37
[2025-07-07 13:52] VITALS: BP 116/57; PULSE 80; RESP 18; TEMP 37.1; O2SAT 94; BMI 42.6
--- NOTE | 2025-07-07 13:53 | ED.GENADULT ---
HPI - General Adult General Chief complaint: Back Pain/Injury Stated complaint: severe lower back pain Time Seen by Provider: 07/07/25 15:02 Source: patient and RN notes reviewed Mode of arrival: ambulatory Limitations: no limitations History of Present Illness ED Provider: Sallie Amado PA-C [facility] narrative: This is a 24-year-old male who presents emergency department for evaluation of back pain. He has a history of back pain, however states that while he is getting off the towards this afternoon he noticed significantly increased back pain. Your sports pain worsens with walking. He denies any numbness, tingling or weakness. No fevers or chills. No history of IVDA. He took Tylenol prior to his arrival without any relief. No urinary symptoms. No saddle anesthesia. No urinary or bowel retention or incontinence. No other complaints or concerns at this time. MD complaint: Back pain Onset (ago): hour(s) Related Data Previous Rx's ?Medication ?Instructions ?Recorded amoxicillin 500 mg capsule 500 mg PO BID #14 caps 05/07/21 amoxicillin 500 mg tablet 500 mg PO BID #14 tabs 05/07/21 ciprofloxacin 0.2 %-hydrocortisone 3 drp otic (ear) left BID 7 days 05/07/21 1 % ear drops,suspension (Cipro HC) ciprofloxacin HCl 0.2 % ear drops 5 drp otic (ear) left BID 7 days 05/07/21 in a dropperette acetaminophen 500 mg tablet 500 - 1,000 mg (1 - 2 x 500 mg) PO 07/07/25 (Tylenol Extra Strength) Q6H PRN pain #30 tabs cyclobenzaprine 10 mg tablet 10 mg PO TID PRN muscle spasm #14 07/07/25 tabs ibuprofen 600 mg tablet 600 mg PO Q6H PRN pain #30 tabs 07/07/25 prednisone 20 mg tablet 40 mg (2 x 20 mg) PO DAILY #12 tabs 07/07/25 prednisone 20 mg tablet 40 mg (2 x 20 mg) PO DAILY 4 days 07/07/25 #8 tabs Allergies Allergy/AdvReac Type Severity Reaction Status Date / Time No Known Allergies (No Known Allergy Verified 07/07/25 13:54 Allergies*) Review of Systems Review of Systems: Yes all other systems are reviewed and are negative Constitutional: Constitutional: Reports as per [facility] Social History Social History Patient Tobacco Use Status: Never used Tobacco Smoked in Last 30 Days: No Use of substances other than those prescribed or required for medical reasons: No Advance Directives: No Advance Directives Information Provided: No Physical Exam ED Vital Signs: Vital Signs - 24 hr 07/07/25 13:52 07/07/25 17:19 07/07/25 17:24 Temperature 98.7 F 98.6 F 98.6 F Pulse Rate 80 99 99 Respiratory Rate 18 20 20 Blood Pressure 116/57 L 141/60 H 141/60 H Pulse Oximetry 94 99 99 Oxygen Delivery Method Room Air Room Air Room Air BMI result Body Mass Index 42.6 Const General: cooperative, comfortable and no acute distress Orientation/consciousness: patient oriented x3 Limitations: no limitations HENMT Head: Yes normal to inspection, Yes normocephalic and Yes atraumatic Ears: hearing grossly normal bilaterally General nose exam: Normal external nose present Face and sinus: Yes normal facial exam Mouth: Normal oral and palatal mucosa present, oropharynx normal and moist mucous membranes Throat: Yes posterior oropharynx normal Eyes General: appearance normal, both eyes and all related structures Eyelids: Yes eyelids normal Conjunctivae: conjunctivae normal Sclerae: sclerae normal Pupils: Equal, round and reactive pupils present EOM: EOMs intact bilaterally Neck Neck: Yes normal visual inspection, Yes full ROM and Yes no lymphadenopathy Lymphatic: no lymphadenopathy noted Chest Chest palpation & inspection: normal inspection of the chest Resp Effort & Inspection: normal respiratory effort and able to speak in complete sentences Auscultation: clear to auscultation bilaterally, no crackles, no rales, no rhonchi and no wheezes Cardio Rate: regular rate Rhythm: regular rhythm Heart sounds: S1 normal heart sound present and S2 normal heart sound present GI Inspection: Yes normal to inspection Back/Spine/Pelvis Other: Tenderness palpation along the left low back, overlying the lumbar paraspinous muscles. Positive straight leg raise on the left. DTRs 2+ Skin General skin exam: no rashes or lesions noted Trauma: no lacerations or abrasions Wounds: no wounds Neuro General: patient oriented x3 and moves all extremities Cranial nerves: Yes Equal, round and reactive pupils present Extrem General: Yes normal to inspection Right upper extremity: normal to inspection Left upper extremity: normal to inspection Right lower extremity: normal to inspection Left lower extremity: normal to inspection Course Course Course Narrative: RME: 24-year-old male presents to the ED for low back pain exacerbation without any trauma. Radiating down lower extremities. No genitourinary symptoms or abdominal pain. X-ray was ordered Medications Administered Discontinued Medications Generic Name Dose Route Start Last Admin Trade Name Luke PRN Reason Stop Dose Admin Cyclobenzaprine HCl 10 mg 07/07/25 15:17 07/07/25 15:32 Cyclobenzaprine Hcl 10 Mg Tablet PO 07/07/25 15:18 10 mg ONCE ONE Administration Ketorolac Tromethamine 30 mg 07/07/25 15:17 07/07/25 15:32 Ketorolac Tromethamine 30 Mg/Ml Vial IM 07/07/25 15:18 30 mg ONCE ONE Administration Prednisone 40 mg 07/07/25 15:17 07/07/25 15:32 Prednisone 20 Mg Tablet PO 07/07/25 15:18 40 mg ONCE ONE Administration Medical Decision Making Medical Decision Making [facility] Narrative: This is a 24-year-old male who presents emergency department with concerns of low back pain, worsening after trying to get off the toilet this afternoon. This patient presents with back pain most consistent with lumbar muscle spasm. Differential diagnoses includes lumbago versus musculoskeletal spasm / strain versus sciatica.No back pain red flags on history or physical. Presentation not consistent with malignancy (lack of history of malignancy, lack of B symptoms), fracture (no trauma, no bony tenderness to palpation), cauda equina (no bowel or urinary incontinence/retention, no saddle anesthesia, no distal weakness), AAA, viscus perforation , pulmonary embolism, renal colic, pyelonephritis (afebrile, no CVAT, no urinary symptoms). X-rays obtained revealing no acute bony abnormalities 6:30 PM 07/07/2025 (Sallie Amado PA-C): Back pain improved significantly after receiving medications, he is ambulatory in the ED. Discharged on muscle relaxants, prednisone, ibuprofen and Tylenol. Given strict return precautions. He understands and agrees with plan. Patient stable for discharge. Differential Diagnosis Differential Diagnoses: The differential diagnosis associated with the presentation includes See above Admission/Observation Consideration of admission/observation: Escalation of care including admission/observation considered Radiology Impression Discussion of test interpretation with radiology: I have reviewed the radiologist's reading. Radiologist Impression: CLINICAL HISTORY: back pain Three-view lumbar spine Comparison: None provided Findings: Normal vertebral body alignment. No acute fractures or dislocation. No significant degenerative change. IMPRESSION: No acute findings. This document has been electronically signed by: Tamia Velazquez MD on 07/07/2025 15:08:39 Dictated By: Tamia Velazquez MD Findings: Normal vertebral body alignment. No acute fractures or dislocation. No significant degenerative change. IMPRESSION: No acute findings. This document has been electronically signed by: Tamia Velazquez MD on 07/07/2025 15:07:37 Dictated By: Tamia Velazquez MD Discharge Plan Discharge Clinical Impression: Back pain, Back spasm Patient Disposition: Home, Self-Care Instructions: Muscle Spasm (ED), Back Pain (ED) Additional Instructions: You were seen in the emergency department due to back pain. Your x-rays were normal. You are likely experiencing muscle spasms. Please take prescribed medication as directed. Prednisone as a medication that can help decrease inflammation, please start this tomorrow as you already received a dose today. Flexeril as a muscle relaxants, please be advised that this can cause drowsiness, do not drink alcohol or drive while taking this medication. Ibuprofen and Tylenol can also be helpful for your symptoms. Gentle stretching, heat or ice, massage can be helpful. Follow-up with your primary care physician. If any new or worsening symptoms occur including but not limited to worsening back pain, loss of bladder or bowel control, inability to walk, please seek emergent care. Prescriptions: New cyclobenzaprine 10 mg tablet 10 mg PO TID PRN (Reason: muscle spasm) Qty: 14 0RF acetaminophen [Tylenol Extra Strength] 500 mg tablet 500 - 1,000 mg PO Q6H PRN (Reason: pain) Qty: 30 0RF ibuprofen 600 mg tablet 600 mg PO Q6H PRN (Reason: pain) Qty: 30 0RF prednisone 20 mg tablet 40 mg PO DAILY Qty: 12 0RF prednisone 20 mg tablet 40 mg PO DAILY 4 Days Qty: 8 0RF Rx Instructions: start 07/08 No Action Cipro HC 0.2-1 % drops,suspension 3 drp otic (ear) left BID 7 Days 0RF amoxicillin 500 mg capsule 500 mg PO BID Qty: 14 0RF ciprofloxacin HCl 0.2 % dropperette 5 drp otic (ear) left BID 7 Days 0RF amoxicillin 500 mg tablet 500 mg PO BID Qty: 14 0RF Stand Alone Forms: Work/School Release Interventions: ED Discharge Assessment Last Done: 07/07/25 17:24 Discharge Date/Time: 07/07/25 17:25 Print Language: Spanish
--- OUTSIDE RECORDS SUMMARY | 2025-07-07 15:35 | XMS_ITS | Encounter Summary ---
Author Organization [employer] Address [address] [facility] [address] [place] [address] Care Team Providers Care Mechanical Oxidizer Name Role Phone Lisa Mata Primary Care Provider [phone] Reason for Visit * Reason Comments Med Refill Encounter Details Date Type Department Care Team ([facility] Contact Info) Description 03/13/2024 Refill [facility]S [address] [place], [place] [phone] Lisa Mata ANP [address] [facility] [place] [address] Insomnia, unspecified type Social History Tobacco Use [...] Description 08/29/2025 1:15 PM EDT Office Visit [facility] MEDICINE [address] [place] [address] Lisa Mata ANP [address] [place] [address] 11/06/2025 3:00 PM EST Office Visit [facility] OPTOMETRY [address] [place] [address] Isrrael, Piper, OD [address] [place] [address] documented as of this encounter Visit Diagnoses Diagnosis Insomnia, unspecified type documented in this encounter Care Teams Mechanical Oxidizer Relationship Specialty Start Date End Date Lisa Mata ANP [address] [place] [address] PCP - General Family Medicine 06/28/22 documented as of this encounter
--- OUTSIDE RECORDS SUMMARY | 2025-07-07 15:35 | XMS_ITS | Encounter Summary ---
Author Organization [employer] Address [address] [facility] [address] [place] [address] Care Team Providers Care Jitney Driver Name Role Phone Lisa Mata Primary Care Provider Reason for Visit * Reason Comments Med Refill Encounter Details Date Type Department Care Team ([facility] st Contact Info) Description 03/08/2024 Refill [facility] CH[facility] MED & PEDS [address] [place], [place] [phone] Lisa Mata ANP [address] [place] [address] Insomnia, unspecified type Social History Tobacco Use [...] Description 08/29/2025 1:15 PM EDT Office Visit [facility] MEDICINE [address] [place] [address] Lisa Mata ANP [address] [place] [address] 11/06/2025 3:00 PM EST Office Visit [facility] OPTOMETRY [address] [place] [address] Isrrael, Piper, OD [address] [place] [address] documented as of this encounter Visit Diagnoses Diagnosis Insomnia, unspecified type documented in this encounter Care Teams Jitney Driver Relationship Specialty Start Date End Date Lisa Mata ANP [address] [place] [address] PCP - General Family Medicine 06/28/22 documented as of this encounter
--- OUTSIDE RECORDS SUMMARY | 2025-07-07 15:35 | XMS_ITS | Encounter Summary ---
Author Organization [facility] Address [address] [place] [address] Phone Care Team Providers Care Warehouse Engineer Name Role Phone Unavailable Primary Care Provider Unavailabl e Encounter Details Date Type Department Care Team (Late st Contact Info) Description 06/16/2017 Conversion Encounter [facility] - [address] [address] Social History Tobacco Use Types Packs/Day Years [...]
--- OUTSIDE RECORDS SUMMARY | 2025-07-07 15:35 | XMS_ITS | Encounter Summary ---
Author Organization [employer] Address [address] [facility] [address] [place] [address] Care Team Providers Care Enrollment Representative Name Role Phone Lisa Mata Primary Care Provider [phone] Reason for Visit * Reason Comments Med Refill Encounter Details Date Type Department Care Team ([facility] Contact Info) Description 03/12/2024 Refill [facility] CHC MED & PEDS [address] [place], [place] [phone] Lisa Mata ANP [address] [facility] [place] [address] Insomnia, unspecified type Social History Tobacco Use [...] Description 08/29/2025 1:15 PM EDT Office Visit [facility] MEDICINE [address] [place] [address] Lisa Mata ANP [address] [place] [address] 11/06/2025 3:00 PM EST Office Visit [facility] OPTOMETRY [address] [place] [address] Isrrael, Piper, OD [address] [place] [address] documented as of this encounter Visit Diagnoses Diagnosis Insomnia, unspecified type documented in this encounter Care Teams Enrollment Representative Relationship Specialty Start Date End Date Lisa Mata ANP [address] [place] [address] PCP - General Family Medicine 06/28/22 documented as of this encounter
--- OUTSIDE RECORDS SUMMARY | 2025-07-07 15:35 | XMS_ITS | Clinical Summary ---
Author Organization [address] [facility] Address [address] [place] [address] Phone Care Team Providers Care Content Architect Name Role Phone AdolfoLisa LYNNE Primary Care Provider [phone] Medications terbinafine (LamISIL) 250 mg tablet Take 1 tablet (250 mg total) by mouth 1 (one) time each day. 30 tablet 2 06/13/2025 Active Encounters Date Type Department Care Team Description 06/13/2025 1:15 PM EDT Office Visit Orthopedic Surgery [address] [phone] Carroll Puga DPM Dermatophytosis of nail (Primary [...] Upcoming Encounters Date Type Department Care Team ([facility] Contact Info) Description 07/30/2025 3:00 PM EDT Office Visit [facility] [address] [phone] Carroll Puga DPM [address] [phone] Health Maintenance Due Date Last [...] to complete this topic Insurance [place] Care Teams Content Architect Relationship Specialty Start Date End Date Lisa Mata NP [address] [place] [phone] PCP - General 03/14/25
--- OUTSIDE RECORDS SUMMARY | 2025-07-07 15:35 | XMS_ITS | Clinical Summary ---
Author Organization [facility] Address [address] [place] [phone] Phone Care Team Providers Care Information Systems Coordinator Name Role Phone Unavailable Primary Care Provider [...]
--- OUTSIDE RECORDS SUMMARY | 2025-07-07 15:35 | XMS_ITS | Clinical Summary ---
Author Organization [employer] Address [address] [place] [address] [address] [place] [address] Care Team Providers Care Chief Executive Name Role Phone Lisa Mata Primary Care Provider [phone] Allergies No known active allergies Medications * [...] Description 05/28/2025 1:15 PM EDT Office Visit [facility] [address] [place] [address] Lisa Mata ANP Elevated hemoglobin A1c (Primary Dx); Elevated LFTs; Daytime somnolence; Stress 05/28/2025 Travel 05/27/2025 Travel 05/27/2025 Telephone [facility] [address] [place] [address] Lisa Mata ANP chart prep from Last 3 Months Immunizations Immunization Administration [...] Description 08/29/2025 1:15 PM EDT Office Visit [facility] [address] [place] [address] Lisa Mata ANP [address] [place] [address] 11/06/2025 3:00 PM EST Office Visit [facility] OPTOMETRY [address] [place], [place] [phone] Piper Arcos, OD [address] [place], [place] [phone] Health Maintenance Due Date Last Done Comments [...] 05/25/2011, 03/17/20 10 HPV Vaccines Completed 11/27/2014, 1103/2013, 05/26/2012 Meningococcal Vaccine Completed 03/22/2017, 012 HIV [...] PM EDT) Hepatitis C Antibody Nonreactive Nonreactive [facility] Comment:Antibodies to HCV no t detected; does not exclude early acuteHCV infection. Blood Venous blood specimen / Unknown 03/07/2025 3:13 PM EDT 03/07/2025 3:54 PM EDT [facility] LAB BLOOD ORDERABLES Final Resul t [facility] [address] [place] [phone] * HIV-1/2 Antigen and Antibodies, Fourth Generation, with Reflexes (03/07/2025 3:13 PM EDT) HIV AB/AG Nonreactive Nonreactive [facility] Comment:HIV-1 p24 Ag and/or HIV-1/HIV-2 Ab not detected.A test result that is nonreactive does not exclude thepossibility of exposure to or infection with HIV-1 and/orHIV-2. Nonreactive results in this assay for individualswith prior exposure to HIV-1 and/or HIV-2 may be due toantigen and antibody levels that are below the limit ofdetection of this assay.The [employer] HIV Ag/Ab Combo assay result andsupplemental assay results should be interpreted inconjunction with the patient's clinical presentation,history and other laboratory results. If the results areinconsistent with clinical evidence, additional testing issuggested to confirm the result. Blood Venous blood specimen / Unknown 03/07/2025 3:13 PM EDT 03/07/2025 3:54 PM EDT [facility] LAB BLOOD ORDERABLES Final Resul t [facility] [address] [place] [phone] * Hemoglobin A1c (03/07/2025 3:13 PM EDT) Hemoglobin A1c 5.7 <6.0 % [facility] Comment:Hemoglobin A1C Refer ence Range Adults: 4.8 - 6.0 % Non diabetic: < 6.0 % Goal: < 7.0 %Additional Action Suggested: > 8.0 %Note: Hemoglobin A1c results are invalid for patients with abnormal amounts of HbF. Blood transfusions may impact the HbA1c concentration in the patient sample. Estimated Average Glucose 117 mg/dL [facility] Comment:eAG = Estimated ave rage glucose which is %A1C expressed asaverage glucose, using the formula of the G4W-YrjrmeyJnvglfk Glucose study (ADAG), Diabetes Care, Vol.31,#8,May. 2007 Blood Venous blood specimen / Unknown 03/07/2025 3:13 PM EDT 03/07/2025 3:54 PM EDT us Lisa ZULETA LAB BLOOD ORDERABLES Final Resul t [facility] [address] [place] [phone] from Last 3 Months or Most Recently Relevant to Health Maintenance [facility] Care Teams Chief Executive Relationship Specialty Start Date End Date Lisa Mata ANP [address] [place] [address] PCP - General Family Medicine 06/28/22
[2025-07-07 17:19] VITALS: BP 141/60; PULSE 99; RESP 20; TEMP 37; O2SAT 99
[2025-07-07 17:24] VITALS: BP 141/60; PULSE 99; RESP 20; TEMP 37; O2SAT 99
== END 2025-07-07 17:25 | disposition home or self-care (01) ==
PROVIDERS: Emergency Provider Student in an Organized Health Care Education/Training Program; PCP Nurse Practitioner Primary Care
DX: M54.9 Dorsalgia, unspecified (principal); M62.830 Muscle spasm of back; Z87.39 Personal history of other diseases of the musculoskeletal system and connective tissue
CPT/HCPCS: 72072; 72100; 96372; 99284; J1885

== ENCOUNTER → 2025-07-07 13:52 | Outpatient (BNV) | payer MEDICAID, SELFPAY | PROVIDERS: Emergency Provider Student in an Organized Health Care Education/Training Program; PCP Nurse Practitioner Primary Care; Visit Provider Radiology Diagnostic Radiology | DX: M54.50 Low back pain, unspecified (principal); M54.6 Pain in thoracic spine | CPT/HCPCS: 72072; 72100 ==